=== PATIENT | female | born 1985 | race Caucasian/White ===

== ENCOUNTER 2020-12-23 12:50 | Emergency (ER) | payer BC ==
[2020-12-23] MEDS ORDERED: Dexamethasone 10 MG/ML SDV IM STA (13:07)
--- NOTE | 2020-12-23 13:14 | EDM.PDOC ---
ED HPI GENERAL MEDICAL PROBLEM - General Chief Complaint: Eye Problems Stated Complaint: NUMBNESS Time Seen by Provider: 12/23/20 12:59 - History of Present Illness INITIAL COMMENTS - FREE TEXT/NARRATIVE: History of present illness: [] Patient reports that for 2 weeks she has a severe headache that is intermittent. She has a constant headache that is not quite as severe but then she has a thunderclap horrible headache in the right side of her head every once in a while. During this entire 2 weeks she has had weakness of the left upper extremity. She says that she holds her long enough it would drift and she is unable to lift heavy objects which is interfering with her work. 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 The patient thinks she is having migraines again and again has neurologic deficit. Patient saw family doctor in the clinic 2 days ago and had a CT yesterday that was normal. I read the report and agree Review of systems: As per history of present illness and below otherwise all systems reviewed and negative. Past medical history: As per history of present illness and as reviewed below otherwise noncontributory. Surgical history: As per history of present illness and as reviewed below otherwise noncontributory. Social history: No reported history of drug or alcohol abuse. Family history: As per history of present illness and as reviewed below otherwise noncontributory. Physical exam: Constitutional - well developed, well-nourished and in no acute distress HEENT - normocephalic, no evidence of trauma - external nose and mouth normal - no mass in neck and no JVD - mucosae moist EYES - full EOM, PERRL, no icterus - no evidence of inflammation, injection, or drainage Respiratory - no respiratory distress, equal bilateral expansion, lungs clear to auscultation and no abnormal lung sounds Cardiovascular -right equal left without bruit. Regular Rhythm with S1 and S2 appreciated and no murmur, gallop or rub. GI - abdomen soft without distension or organomegaly - normal bowel sounds - no guard or rebound Musculoskeletal no gross deformity of long bones or joints - no tenderness, swelling or edema Neurologic - Alert and oriented times four - CN II-XII grossly intact - motor sensory and coordination symmetrically normal. Fast exam [place] and customary neurologic exam is normal at this time. Psychiatric - appropriate mood and affect with normal thought content Hematologic - No petechiae or purpura - mucosa appropriate color and sclera not pale - normal nail bed color and refill Integument - no rash or evidence of trauma - normal turgor Diagnostics: [] Therapeutics: [] Impression: [] Plan: [] Definitive disposition and diagnosis as appropriate pending reevaluation and review of above. - Related Data Allergies Allergy/AdvReac Type Severity Reaction Status Date / Time HYCYCLAMINE Allergy Nausea and Uncoded 12/23/20 13:09 Vomiting Home Meds: Home Meds Acetaminophen/HYDROcodone [[place] 325-10 MG] 1 tab PO Q4H PRN #14 tablet 12/23/20 [Rx] Topiramate [Topamax] 25 mg PO DAILY 12/23/20 [History] predniSONE [Prednisone] 60 mg PO DAILY #21 tablet 12/23/20 [Rx] ED ROS GENERAL - Review of Systems Review Of Systems: Comprehensive ROS is negative, except as noted in HPI. ED EXAM, GENERAL - Physical Exam Exam: See Below Free Text/Narrative:: My physical exam is in the HPI Course - Vital Signs Text/Narrative:: I discussed the case with Dr. Pablo and she agreed with me that after 24 hours there is no emergency intervention I can do. She has had the stroke work- up in the past and was told it was hemiplegic migraine. I do not see any need to admit her for the stroke work-up when she has not had any change in condition for 2 weeks. She had been started on Topamax by the primary doctor. Dr. Pablo did not disagree with this and thought steroids might help. I told the patient I would help her out to tolerate her symptoms over the weekend and Dr. Pablo said she would see the patient as soon as she could possibly work her into the office. Departure - Departure Time of Disposition: 13:14 Disposition: Home, Self-Care 01 Condition: Good Clinical Impression: Hemiplegic migraine - Discharge Information Prescriptions: predniSONE [Prednisone] 60 mg PO DAILY #21 tablet Instructions: Recurrent Migraine Headache, [id number] Referrals: PCP,None [Primary Care Provider] - Debbie Pablo MD [Physician] - Additional Instructions: [facility] - Neurology Professional [address], [address] [place] [address] The following information is given to patients seen in the emergency department who are being discharged to home. This information is to outline your options for follow-up care. We provide all patients seen in our emergency department with a follow-up referral. The need for follow-up, as well as the timing and circumstances, are variable depending upon the specifics of your emergency department visit. If you don't have a primary care physician on staff, we will provide you with a referral. We always advise you to contact your personal physician following an emergency department visit to inform them of the circumstance of the visit and for follow-up with them and/or the need for any referrals to a consulting spe cialist. The emergency department will also refer you to a specialist when appropriate. This referral assures that you have the opportunity for follow-up care with a specialist. All of these measure are taken in an effort to provide you with optimal care, which includes your follow-up. Under all circumstances we always encourage you to contact your private physician who remains a resource for coordinating your care. When calling for follow-up care, please make the office aware that this follow-up is from your recent emergency room visit. If for any reason you are refused follow-up, please contact the [facility] Emergency Department at and asked to speak to the emergency department charge nurse.
== END 2020-12-23 13:39 | disposition home or self-care (01) ==
LOC: MW.ED 12:50
DX: G43.409 Hemiplegic migraine, not intractable, without status migrainosus (principal); Z88.8 Allergy status to other drugs, medicaments and biological substances
CPT/HCPCS: 96372; 99283; J1100

== ENCOUNTER 2025-03-31 15:26 | Emergency (ER) | payer SELFPAY ==
[2025-03-31 17:15] LABS: BASOPHILS ABSOLUTE AUTO 0.05 K/uL (0.00-0.20); BASOPHILS PERCENT AUTO 0.3 % (0.0-1.0); EOSINOPHILS ABSOLUTE AUTO 0.12 K/uL (0.00-0.45); EOSINOPHILS PERCENT AUTO 0.7 % (0.0-6.0); HEMATOCRIT 40.1 % (37.0-47.0); HEMOGLOBIN 14.1 g/dL (12.0-16.0); IMMATURE GRAN ABSOLUTE AUTO 0.05 K/uL (0.00-0.05); IMMATURE GRAN PERCENT AUTO 0.3 % (0.0-0.4); LYMPHOCYTES ABSOLUTE AUTO 1.48 K/uL (1.00-4.80); LYMPHOCYTES PERCENT AUTO 9.2 % (24.0-44.0); MEAN CORPUSCULAR HEMOGLOBIN 30.6 pg (28.0-32.0); MEAN CORPUSCULAR HGB CONC 35.2 g/dL (32.0-36.0); MEAN PLATELET VOLUME 9.8 fL (9.4-12.3); MONOCYTES ABSOLUTE AUTO 0.76 K/uL (0.00-0.80); MONOCYTES PERCENT AUTO 4.7 % (0.0-8.0); NEUTROPHILS ABSOLUTE AUTO 13.71 K/uL (1.80-7.70); NEUTROPHILS PERCENT AUTO 84.8 % (41.0-71.0); PLATELET COUNT,PLT 263 K/uL (150-400); RED BLOOD CELL COUNT 4.61 M/uL (4.10-5.30); WHITE BLOOD CELL COUNT,WBC 16.17 K/uL (3.9-11.3)
[2025-03-31] MEDS: traMADol 50 MG Tab PO ONE (17:17)
[2025-03-31] MEDS: Amoxicillin/Clavulanate K 875-125 MG Tab PO ONE (17:18)
[2025-03-31] MEDS: Ondansetron 4 MG Tab.DIS PO ONE (17:18)
[2025-03-31 17:37] LABS: A/G RATIO 1.2 (0.9-1.6); ALBUMIN 4.1 g/dL (3.4-5.0); BILIRUBIN TOTAL 0.4 mg/dL (0.2-1.0); CALCIUM 8.9 mg/dL (8.5-10.1); CARBON DIOXIDE,CO2 23.6 mmol/L (21.0-32.0); EST CRCL DRUG DOSING (CG) 64.58 mL/min; POTASSIUM,K 4.3 mmol/L (3.5-5.1); PROTEIN TOTAL,TP 7.6 g/dL (6.4-8.2)
[2025-03-31] MEDS: Iopamidol 755 MG/ML 500 ML Multipack Bottle IVPUSH STA (17:51)
[2025-03-31] MEDS: Morphine 4 MG/ML Syringe IVPUSH ONE (19:09)
== END 2025-03-31 20:02 | disposition home or self-care (01) ==
LOC: MW.ED 15:26
DX: H04.302 Unspecified dacryocystitis of left lacrimal passage (principal); Z88.8 Allergy status to other drugs, medicaments and biological substances; Z79.899 Other long term (current) drug therapy; Z75.3 Unavailability and inaccessibility of health-care facilities; Z86.73 Personal history of transient ischemic attack (TIA), and cerebral infarction without residual deficits
CPT/HCPCS: 36415; 70487; 80053; 85025; 96374; 99284; A9270; J2270; Q9967